=== PATIENT | male | born 1960 | race Two or more races ===

== ENCOUNTER 2022-10-24 17:01 | Outpatient (CLI) | payer OTHER | END 2022-10-24 17:33 | disposition home or self-care (01) | LOC: LAB 17:01 | PROVIDERS: ATTEND Urology | DX: R97.20 Elevated prostate specific antigen [PSA] (principal) ==

== ENCOUNTER 2022-11-14 07:08 | Outpatient (CLI) | payer OTHER | END 2022-11-14 12:16 | disposition home or self-care (01) | LOC: SONOGRAMA 07:08 | PROVIDERS: ATTEND Urology | DX: D29.1 Benign neoplasm of prostate (principal); N41.1 Chronic prostatitis ==